=== PATIENT | female | born 2005 | race Two or more races ===

== ENCOUNTER 2024-05-16 10:28 | Day surgery (SDC) | payer OTHER, SELFPAY ==
--- NOTE | 2024-05-16 10:30 | ED_ITS ---
HPI - General Adult General Time Seen by Provider: 10:30 Date Seen: 05/16/24 Chief complaint: Ear/Nose/Throat Problem Stated complaint: swollen throat - fever Time Seen by Provider: 05/16/24 10:30 Source: patient, RN notes reviewed and other (Provider from urgent care did call report to me.) Mode of arrival: ambulatory Limitations: no limitations History of Present Illness HPI narrative: This 19-year-old female is sent from urgent care with concern of right peritonsillar abscess. She has had a 3 day history of sore throat. Was noted to have a hot potato voice, right neck swelling. They did do a strep and it is negative. Her provider noted right greater than left neck swelling externally. Patient is a [employer] student, studying [employer]. She has an IUD in place. Denies any chronic medical history, has not had tonsillitis or peritonsillar abscess before. Related Data Home Medications ?Medication ?Instructions ?Recorded ?Confirmed No Known Home Medications 05/16/24 05/16/24 Allergies Allergy/AdvReac Type Severity Reaction Status Date / Time No Known Drug Allergies Allergy Verified 05/16/24 09:22 Review of Systems Status of ROS: Reports: 6 or more systems reviewed and unremarkable except as noted in History and below PFSH PFS Social History Smoking Status: Never smoker Do you use any of these nicotine containing products: None How often do you have a drink containing alcohol: never AUDIT-C Alcohol total score: 0 Non-prescribed substance use: marijuana (any form) Exam Const: Vital Signs, click to edit/add: Vital Signs - 24 hr 05/16/24 10:31 05/16/24 10:34 05/16/24 11:46 Temperature 99.1 F Pulse Rate [Pulse Oximeter] 114 H 100 Respiratory Rate 18 Blood Pressure [Le ft Upper Arm] 117/82 117/80 Pulse Oximetry 98 96 Oxygen Delivery Me thod Room Air With this 19-year-old female is alert, interactive, breathing independently, do not hear her breathing. Skin feels warm but no rash. Pupils equal round reactive, sclera clear. She has significant pain opening her jaw, can get her jaw open about 2 cm, can see enough back into the posterior pharynx that there is significant right soft tissue in tonsillar swelling, do not appreciate exudate. Time is normal. Voice is muffled. She has significant pain on palpation of her her right anterior superior neck, do feel adenopathy. Lungs are clear, good air entry, no wheezing or crackles, no stridor noted. CV fast but regular, no murmur. Documenting provider has reviewed patient's vital signs: yes Course Course ED Course: This patient requires emergent CT neck imaging, have definite concerns about peritonsillar abscess, likely right. Will place an IV, have her on pulse oximetry. Will give her pain management with morphine, cover nausea side effect with Zofran. Will give her 500 mL normal saline. Will get appropriate labs, strep has been done and is negative, will obtain mono and the triple viral swab. The patient will get Unasyn 3 g IV and 10 mg IV dexamethasone. Reevaluation(s) Time of Reevaluation #1: 12:17 Reevaluation #1: With patient has been moved over to preop area awaiting arrival of ENT to go to OR. Anesthesia has already been over to see her. We will hold her in the preop area awaiting Dr. Loaiza, need surgical drainage of her right para tonsillar abscess. Did review with anesthesia if there is concern for the airway and problems with extubation, we certainly can help with assisting them and getting her placement at outside institution. This may be difficult due to bed capacity that the outside systems are currently experiencing. Patient declines any need for pain management at this time. Was actually resting and sleeping prior to us awakening her to ready her for surgery. Consultations Consultation #1: Have talked to Dr. Loaiza whom is on his way. This patient does require surgical drainage, there is concern about extension of the infection to the airway. There is no retropharyngeal extension. She does have 2 rim enhancing abscesses in the right palatine tonsil with likely rupture into the inferior right peritonsillar space. Time: 11:41 Consultation #2: We have assisted the OR team and attempt he define ICU beds for this patient. I did just talk to [facility], they do not have capacity at the 1 ICU with ENT and airway issues; thus they have no ability to take this patient. Patient was reportedly weight listed at [facility], other [facility] facilities are unable to take this patient. The anesthesia providers and hospitalist will need to make accommodations for this patient at this time here until we can find an ICU bed. Dr. Loaiza did review with [facility] of [facility] via speaker while here in the office that he did amputate the distal 3rd of her uvula due to significant cellulitic infection. He saw hypoglossal cellulitis. She had blebs on the posterior aspect of her epiglottis that were watery and edematous. She had an infectious its and suppurative tonsils. He did drain 2 abscesses. Time: 13:54 Consultation #3: Spoke with [facility] lining machine operator Dr. Flaherty. Reviewed the case, he will accept the patient. Will let the OR crew know that I have spoken on behalf of this patient for transfer. Time: 16:23 Vital Signs Vital signs: Initial Vital Signs Pulse Oximetry 98 05/16/24 10:31 Vital Signs Pulse Oximetry 98 05/16/24 10:31 Temperature 99.1 F 05/16/24 10:34 Pulse Rate 100 05/16/24 11:46 Respiratory Rate 18 05/16/24 10:34 Blood Pressure 117/80 05/16/24 11:46 Pulse Oximetry 96 05/16/24 10:34 Oxygen Delivery Method Room Air 05/16/24 10:34 Medications Administered Medications: Discontinued Medications Generic Name Dose Route Start Last Admin Trade Name Freq PRN Reason Stop Dose Admin Dexamethasone 10 mg 05/16/24 11:07 05/16/24 11:42 Dexamethasone 10 Mg/Ml Inj IVP 05/16/24 11:08 10 mg ONCE ONE Administration Sodium Chloride 500 mls @ 500 mls/hr 05/16/24 10:40 05/16/24 11:50 0.9 % Sodium Chloride 500 Ml IV 05/16/24 11:39 Infused .Q1H ONE Infusion Ampicillin Sodium/Sulbactam 100 mls @ 200 mls/hr 05/16/24 11:07 05/16/24 11:39 Sodium 3 gm/ Sodium Chloride IVPB 05/16/24 11:08 200 mls/hr ONCE ONE Administration Morphine Sulfate 2 mg 05/16/24 10:40 05/16/24 11:28 Morphine 2 Mg/Ml Inj IVP 05/16/24 10:41 2 mg ONCE ONE Administration Ondansetron HCl 4 mg 05/16/24 10:40 05/16/24 11:25 Ondansetron 2 Mg/Ml Inj IVP 05/16/24 10:41 4 mg ONCE ONE Administration Medical Decision Making Lab Data Lab results reviewed: Yes I reviewed the patient's lab results Labs: Lab Results 05/16/24 05/16/24 Range/Units 10:52 11:50 WBC 15.20 H (4.50-11.00) K/uL RBC 4.15 (4.00-5.20) m/uL Hgb 12.5 (12.0-16.0) gm/dL Hct 36.8 (33.0-51.0) % MCV 89 (80-100) fL MCH 30 (26-34) pg MCHC 34 (32-36) gm/dL RDW Coeff of Marsha 11.7 (11.5-15.5) % Plt Count 280 (140-440) K/uL Neut % (Auto) 82.8 H (42.0-72.0) % Lymph % (Auto) 6.6 L (20-44) % [place] % (Auto) 10.1 (0.0-11.0) % Eos % (Auto) 0.0 (0.0-7.0) % Baso % (Auto) 0.2 (0.0-3.0) % Neut # (Auto) 12.60 H (1.7-7.0) K/uL Lymph # (Auto) 1.00 (0.90-2.90) K/uL [place] # (Auto) 1.50 H (0.00-0.90) K/UL Eos # (Auto) 0.00 (0.00-0.50) K/uL Baso # (Auto) 0.00 (0.00-0.30) K/uL Abs Immat Gran (auto) 0.00 (0.00-0.30) K/uL Imm/Tot Granulo (auto) 0.3 % Sodium 132 L (135-149) mmol/L Potassium 3.6 (3.6-5.1) mmol/L Chloride 98 (96-114) mmol/L Carbon Dioxide 20 (20-32) mmol/L Anion Gap 14 (7-15) mEq/L BUN 6 (5-24) mg/dL Creatinine 0.5 (0.5-1.5) mg/dL Estimated GFR 137 ml/min Glucose 99 (60-115) mg/dL Lactate 0.6 (0.5-1.9) mmol/L Calcium 9.4 (8.4-10.6) mg/dL C-Reactive Protein 13.4 H (0.5-1.0) mg/dL SARS-CoV-2 (PCR) POSITIVE SARS-CoV-2 A (Negative) Monoscreen Negative (Negative) Influenza Type A (PCR) Negative PCR FLU A (Negative) Influenza Type B (PCR) Negative PCR FLU B (Negative) RSV (PCR) Negative PCR RSV (Negative) Imaging Data CT- Other: Attestation: I have reviewed the pertinent imaging results. Radiologist's impression: Patient: BERNABE PARRA Facility:?[facility] Patient ID:?[id number] Site Patient ID:?[id number]. Site :?[id number] Study:?CT-ST Neck W/ 76CC ISOVUE 370-05/16/2024 11:08:19 AM Ordering Physician:?Erica James Final Report: Indication: Severe sore throat, difficulty swallowing. Technique: Contrast-enhanced CT of the neck with multiplanar reconstructions utilizing 76 cc Isovue 370 iodinated intravenous contrast. Comparison: None available. Findings: Striated enhancement and enlargement of the palatine tonsils consistent with acute suppurative tonsillitis. Two rim enhancing abscesses within the right palatine tonsil, the superior collection measuring 1.8 x 0.9 x 1.5 cm (series 3, image 24) and a collection more inferiorly measuring 1.3 x 1.2 x 1.1 cm (series 3, image 28). Likely ruptured into the inferior right peritonsillar space with diffuse infiltration of the soft tissues throughout the right neck and supraglottic space. Mild mass effect on the airway with effacement of the right piriform sinus. No retropharyngeal extension. Multiple enlarged bilateral upper cervical lymph nodes which are likely reactive. Unremarkable parotid and submandibular glands. Normal thyroid gland. The lung apices are clear. No aggressive osseous lesion is identified. The major vascular structures are within normal limits. The imaged orbits and intracranial structures are unremarkable. Impression: 1. Striated enhancement and enlargement of the palatine tonsils consistent with acute suppurative tonsillitis. 2. Two rim enhancing abscesses within the right palatine tonsil, with likely rupture into the inferior right peritonsillar space. 3. Diffuse infiltration of the soft tissues throughout the right neck and supraglottic space with mild mass effect on the adjacent airway. 4. No evidence of retropharyngeal extension. 5. Multiple enlarged bilateral cervical lymph nodes which are likely reactive. Please note that all CT scans at this facility use dose modulation, iterative reconstruction, and/or weight-based dosing when appropriate to reduce radiation dose to as low as reasonably achievable. Dictated by Zion Felipe MD @ 05/16/2024 11:34:13 AM (Electronic Signature) Discharge Plan Discharge Clinical Impression: Abscess, peritonsillar, COVID Patient Disposition: XFER to OR Condition: Guarded
[2024-05-16 10:31] VITALS: O2SAT 98
[2024-05-16 10:34] VITALS: BP 117/82; PULSE 114; RESP 18; TEMP 37.3; O2SAT 96
[2024-05-16 10:57] LABS: Lactate* 0.6 mmol/L (0.5-1.9)
[2024-05-16 11:05] LABS: Mono Screen* Negative (Negative)
[2024-05-16 11:16] LABS: Chloride* 98 mmol/L (96-114); Potassium* 3.6 mmol/L (3.6-5.1); Sodium* 132 mmol/L (135-149)
[2024-05-16 11:19] LABS: Creatinine* 0.5 mg/dL (0.5-1.5); Estimated Glomerular Filt Rate 137 ml/min
[2024-05-16 11:20] LABS: Anion Gap 14 mEq/L (7-15); Blood Urea Nitrogen* 6 mg/dL (5-24); Calcium* 9.4 mg/dL (8.4-10.6); Carbon Dioxide* 20 mmol/L (20-32); Glucose* 99 mg/dL (60-115)
[2024-05-16] MEDS: 0.9 % SODIUM CHLORIDE 500 ML 500 ML IV (11:22)
[2024-05-16] MEDS: ONDANSETRON 2 MG/ML inj 4 MG IVP (11:25)
[2024-05-16] MEDS: MORPHINE 2 MG/ML inj IVP (11:28)
[2024-05-16 11:31] LABS: Basophils Percent Auto 0.2 % (0.0-3.0); Hematocrit 36.8 % (33.0-51.0); Hemoglobin* 12.5 gm/dL (12.0-16.0); Immature Granulocytes Pct Auto 0.3 %; Lymphocytes Percent Auto 6.6 % (20-44); Mean Corpuscular HGB Conc 34 gm/dL (32-36); Mean Corpuscular Hemoglobin 30 pg (26-34); Mean Corpuscular Volume 89 fL (80-100); Monocytes Percent Auto 10.1 % (0.0-11.0); Neutrophils Percent Auto 82.8 % (42.0-72.0); Platelet Count* 280 K/uL (140-440); RDW Coefficient of Variation % 11.7 % (11.5-15.5); Red Blood Count 4.15 m/uL (4.00-5.20); Slide Review Reflex No
[2024-05-16 11:34] LABS: C Reactive Protein* 13.4 mg/dL (0.5-1.0)
[2024-05-16] MEDS: AMPICILLIN/SULBACTAM 3 GM in 0.9 % SODIUM CHLORIDE Mini-bag 100 ML IVPB (11:39)
[2024-05-16] MEDS: dexAMETHasone 10 MG/ML inj IVP (11:42)
[2024-05-16 11:46] VITALS: BP 117/80; PULSE 100
[2024-05-16 12:45] LABS: PCR FLU A Negative PCR FLU A (Negative); PCR FLU B Negative PCR FLU B (Negative); PCR RSV Negative PCR RSV (Negative); SARS PCR* POSITIVE SARS-CoV-2 (Negative)
--- NOTE | 2024-05-16 12:49 | P.ENTCN_ITS ---
HPI- ENT Consult Date of Consult Date Seen: 05/16/24 Consult date: 05/16/24 Primary Care Provider: Not a Local Provider Consult Narrative Reason for consult: Right peritonsillar absces, hypopharyngeal edema/cellulitis Narrative: Emma Stark is a 19 year old female 4 day history of sore throat presented to ER with trismus odynophagia dysphagia and right neck swelling. CT revealed 2 right peritonsillar abscesses. One was read as possibly intra tonsillar. There was adjacent neck soft tissue edema and on my read of the scan and there is significant edema of the epiglottis. The airway was patent. She was treated with IV antibiotic and Decadron [facility] Social History Smoking Status: Never smoker Do you use any of these nicotine containing products: None How often do you have a drink containing alcohol: never AUDIT-C Alcohol total score: 0 Non-prescribed substance use: marijuana (any form) Meds Home Medications and Allergies Home Medications ?Medication ?Instructions ?Recorded ?Confirmed ?Type No Known Home Medications 05/16/24 05/16/24 History Allergies Allergy/AdvReac Type Severity Reaction Status Date / Time No Known Drug Allergies Allergy Verified 05/16/24 09:22 Exam Narrative: Exam Narrative: General skin neuro respiratory gait peripheral vascular vocal quality skin of head neck are all negative except muffled voice, significant trismus, uvular cellulitis, bulge right soft palate. Unable to visualize the lower airway due to her trismus but we have the CT scan to evaluate that. Const: Vital Signs, click to edit/add: Vital Signs - 24 hr 05/16/24 10:31 05/16/24 10:34 05/16/24 11:46 Temperature 99.1 F Pulse Rate [Pulse Oximeter] 114 H 100 Respiratory Rate 18 Blood Pressure [Le ft Upper Arm] 117/82 117/80 Pulse Oximetry 98 96 Oxygen Delivery Me thod Room Air ENT-CN: Result Labs Labs: Short CBC 05/16/24 Range/Units 10:52 WBC 15.20 H (4.50-11.00) K/uL Hgb 12.5 (12.0-16.0) gm/dL Hct 36.8 (33.0-51.0) % Plt Count 280 (140-440) K/uL [facility] 05/16/24 10:52 Sodium 132 L Potassium 3.6 Chloride 98 Carbon Dioxide 20 BUN 6 Creatinine 0.5 Glucose 99 Calcium 9.4 Assessment and Plan Assessment and plan (1) Abscess, peritonsillar: Status: Acute Plan Right peritonsillar abscess x2. 1 May be intra tonsillar both appear peritonsillar to me. A edema around the epiglottis and on posterior surface of epiglottis, airway patent at this time. Discussed options with patient. Would recommend she be taken the operating room intubated have abscesses drained. Because of the edema around the epiglottis she may remain intubated and transferred to a different facility. Risks include recurrence anesthesia bleeding difficulty obtaining airway injury to adjacent structures etc. these were all reviewed. I also reviewed scan images Total Time Spent Total Time Spent: 40
--- NOTE | 2024-05-16 12:53 | W.PM.ENTPROC ---
Procedure Note Date of procedure: 05/16/24 Procedure: preoperative diagnosis right peritonsillar abscess x2, possible 1 intra tonsillar abscess, cellulitis soft palate, cellulitis at epiglottic level, patent airway Postoperative diagnosis right superior and right inferior peritonsillar abscess, cellulitis uvula, cellulitis on posterior surface of epiglottis and hypopharynx Procedure intubation, drainage 2 right peritonsillar abscesses, amputation of distal uvula to allow decompression The patient was brought to the operating room after informed consent was obtained and prepped and draped in the usual fashion. Anesthesia was able to intubate relatively easily with the assistance of a glide scope. It was apparent on intubation that there were that was cellulitis on the posterior surface of the epiglottis the lingual surface. McIvor mouth gag was inserted the tongue retracted forward. The uvula was quite edematous and the lower 5 mm was completely swollen and was amputated with a needlepoint cautery. There is a bulge in the right soft palate corresponding to the superior peritonsillar abscess. Incision was made in mucosa with a Bovie cautery and then blunt dissection was used to enter the abscess cavity. This was cultured and then the cavity was completely drained and irrigated. There is a right inferior tonsil abscessed. This was approached in the similar way with an incision made with the Bovie cautery just lateral to the lingual tonsillar junction. Blunt dissection was used to easily enter the abscess cavity. This was completed please suction free of pus and then irrigated copiously. Because of the amount of edema in the hypopharynx and on the surface of the epiglottis the patient was left intubated the will be transferred to another facility. Bleeding was controlled during the procedure with suction cautery. Blood loss was approximately 20 mL. There were no complications. Surgeon: Sonny Loaiza MD
--- NOTE | 2024-05-16 13:12 | CRLHL7_ITS ---
For Patients: As a result of the Cures Act, medical imaging exams and procedure reports are released immediately into your electronic medical record. You may view this report before your referring provider. If you have questions, please contact your health care provider. Indication: COVID, INTUBATION PLACEMENT Technique: AP view of the chest. Comparison: None. Findings: Endotracheal tube with tip 5.2 centimeter above the level of the adeline. Normal cardiomediastinal silhouette. Subtle hazy bilateral airspace opacities. No pleural effusions or visualized pneumothorax. Impression: 1. Endotracheal tube with tip 5.2 centimeter above the level of the adeline. 2. Subtle hazy bilateral airspace opacities may represent atypical infection or inflammation. Dictated by Jeffery Price MD @ 05/16/2024 1:43:20 PM (Electronically Signed)
--- NOTE | 2024-05-16 13:18 | SUR.OPER ---
conde placed, 16 turkish 10 ml balloon, clear urine 500 ml of urine in conde bag.
--- NOTE | 2024-05-16 13:40 | W.PM.ENTPN ---
ENT-PN: Subj Subjective Date Seen: 05/16/24 Interval history: Follow-up. Patient is stable intubated. COVID test was positive. Reviewed situation with hospitalist who recommended a chest x-ray. I also ordered a input output measurement and ongoing Unasyn and 2 more doses of Decadron. Progress Note: A&P Assessment and plan (1) COVID: Status: Acute Assessment and Plan: Continue current care Plan COVID positive Status post drainage 2 peritonsillar abscesses Adult supraglottitis Time Spent With Patient Total time spent: 30 Exam Narrative: Exam Narrative: Stable intubated Const: Vital Signs, click to edit/add: Vital Signs - 24 hr 05/16/24 10:31 05/16/24 10:34 05/16/24 11:46 Temperature 99.1 F Pulse Rate [Pulse Oximeter] 114 H 100 Respiratory Rate 18 Blood Pressure [Le ft Upper Arm] 117/82 117/80 Pulse Oximetry 98 96 Oxygen Delivery Me thod Room Air ENT-PN: Obj Labs Labs: Laboratory Results - last 24 hr 05/16/24 05/16/24 10:52 11:50 WBC 15.20 H RBC 4.15 Hgb 12.5 Hct 36.8 MCV 89 MCH 30 MCHC 34 RDW Coeff of Marsha 11.7 Plt Count 280 Neut % (Auto) 82.8 H Lymph % (Auto) 6.6 L [place] % (Auto) 10.1 Eos % (Auto) 0.0 Baso % (Auto) 0.2 Neut # (Auto) 12.60 H Lymph # (Auto) 1.00 [place] # (Auto) 1.50 H Eos # (Auto) 0.00 Baso # (Auto) 0.00 Abs Immat Gran (auto) 0.00 Imm/Tot Granulo (auto) 0.3 Sodium 132 L Potassium 3.6 Chloride 98 Carbon Dioxide 20 Anion Gap 14 BUN 6 Creatinine 0.5 Estimated GFR 137 Glucose 99 Lactate 0.6 Calcium 9.4 C-Reactive Protein 13.4 H SARS-CoV-2 (PCR) POSITIVE SARS-CoV-2 A Monoscreen Negative Influenza Type A (PCR) Negative PCR FLU A Influenza Type B (PCR) Negative PCR FLU B RSV (PCR) Negative PCR RSV
--- NOTE | 2024-05-16 14:18 | SUR.OPER ---
Patient positioned for comfort, pillow under knees, arms flexed and placed on abdomen instead of at her side.
--- NOTE | 2024-05-16 14:45 | SUR.OPER ---
Patient 4 person transferred to regular bed, HOB elevated, 2 pillows under knees.
--- NOTE | 2024-05-16 14:56 | SUR.OPER ---
Patient listed Jimmy as her Primary Contact with phone number [phone]. Listed as a former [employer] Student
--- NOTE | 2024-05-16 15:08 | SUR.OPER ---
Report given to SHAKIRA Carbone prior to leaving for shift. Jimmy is the point of contact for when patient is transferred to another facility.
--- NOTE | 2024-05-16 16:16 | SUR.PHASEI ---
Pt in a supine position at 30 degrees with pillows under knees and calves with pillows under both arms and a pillow under head. Pt has SCD's running on bilateral calves.
--- NOTE | 2024-05-16 16:45 | SUR.PHASEI ---
Pt tilted to right side with pillow under left side. Pillows under knees and calves along with arms. Mouth cares completed at this time. Left ear has red nicholson from position and head moved. Left and right elbows as well have red nicholson. Repositioned to relieve pressure.
--- NOTE | 2024-05-16 17:08 | W.ANESCHARGE ---
Anesthesia Charges Start Date/Time Anesthesia Start Date: 05/16/24 Anesthesia Start Time: 12:22 Stop Date/Time Anesthesia Stop Date: 05/16/24 Anesthesia Stop Time: 17:40 Summary Emergency: MDA
--- NOTE | 2024-05-16 17:14 | SUR.PHASEI ---
Pt turned to right side completely with pillow support, head turned to facing right side. Mepalex applied to sacrum. Sheets flattened out and pt was given oral care and suctioned at this time as well. Ortiz continues to be patent and draining. Pt continues to be calm and relaxed with no signs of aggitation.
--- NOTE | 2024-05-16 17:29 | SUR.PHASEI ---
Ortiz cath was emptied for 100mL of straw colored urine.
--- NOTE | 2024-05-16 18:04 | P.ANES_ITS ---
Anesthesia Charges Start Date/Time Anesthesia Start Date: 05/16/24 Anesthesia Start Time: 12:22 Stop Date/Time Anesthesia Stop Date: 05/16/24 Anesthesia Stop Time: 17:40 Summary Emergency: DISTRICT GAUGER
--- NOTE | 2024-05-16 18:25 | PC.NURSE ---
Per Viki Saleh RN's previous note, Jimmy was updated on pt's transfer. Pt was transferred to [facility] in [place] via [facility].
--- NOTE | 2024-05-17 07:52 | SUR.OPER ---
Patient's procedure ended at 1246, anesthesia end time was at 1301. Patient was then considered PACU time even though patient was still in the operating room. Surgery time was completed and moved to recovery PACU time.
== END 2024-05-16 17:40 | disposition short-term general hospital (02) ==
LOC: ED 11:55 → OR 12:19
PROVIDERS: Emergency Provider Family Medicine; Visit Provider Otolaryngology
PROC: 0C9PXZZ Drainage of Tonsils, External Approach (ICD-10-PCS; CPT 42700; principal; 2024-05-16 12:15)
DX: J36 Peritonsillar abscess (principal); K12.2 Cellulitis and abscess of mouth; J04.30 Supraglottitis, unspecified, without obstruction; U07.1 COVID-19; R13.10 Dysphagia, unspecified
CPT/HCPCS: 42700 ×2; 42140; 00170; 36415; 70491; 71045; 80048; 83605; 85025; 86140; 86308; 87070; 87075; 87076; 87077; 87205; 87631; 94761; 99140; 99285; A9270; J0295; J0330; J1100; J2250; J2270; J2405; J2704; J3010; J3490; J7030; Q9967

== ENCOUNTER 2024-08-11 10:50 | Day surgery (SDC) | payer OTHER, SELFPAY ==
[2024-08-11] VITALS (17 sets, daily range): BP systolic 99–134; BP diastolic 67–98; PULSE 60–94; RESP 14–18; TEMP 36.3–36.9; O2SAT 94–98; BMI 21.1
[2024-08-11] MEDS: LACTATED RINGERS 1000 ML 1,000 ML 100 ML IV (10:55)
[2024-08-11 11:10] LABS: Ur HCG Qualitative* Negative (Negative)
[2024-08-11] MEDS: SODIUM CHLORIDE 0.9 % (FLUSH) 10 ML SYRINGE IVF (11:23)
--- NOTE | 2024-08-11 13:27 | W.PM.ENTPROC ---
Procedure Note Date of procedure: 08/11/24 Procedure: Preoperative diagnosis chronic tonsillitis, tonsillar hypertrophy, upper airway obstruction Postoperative diagnosis same Procedure tonsillectomy Under general endotracheal anesthesia the patient was prepped and draped in usual fashion. The McIvor mouth gag was inserted the tongue retracted forward. No submucous cleft was noted on inspection or palpation. The right and left tonsils were removed with a combination of needlepoint cautery, bipolar cautery and suction cautery. Meticulous hemostasis was achieved. The the nasopharyngeal tonsil pad was visualized with a laryngeal mirror and removed with suction cautery. The patient was extubated in the operating room taken recovery in satisfactory condition. Blood loss was less than 10 mL. Surgeon: Sonny Loaiza MD
--- NOTE | 2024-08-11 13:33 | P.ANES_ITS ---
Anesthesia Charges Start Date/Time Anesthesia Start Date: 08/11/24 Anesthesia Start Time: 12:49 Stop Date/Time Anesthesia Stop Date: 08/11/24 Anesthesia Stop Time: 13:31 Coding CPT Codes CPT Codes: ANESTH PROCEDURE ON MOUTH - 64820 ([id number]) P2 - PATIENT W/MILD SYST DISEASE, QZ - LIFESTYLE CONSULTANT SVC W/O PATIENT'S LIBRARIAN BY
--- NOTE | 2024-08-11 13:33 | W.ANESCHARGE ---
Anesthesia Charges Start Date/Time Anesthesia Start Date: 08/11/24 Anesthesia Start Time: 12:49 Stop Date/Time Anesthesia Stop Date: 08/11/24 Anesthesia Stop Time: 13:31 Coding CPT Codes CPT Codes: ANESTH PROCEDURE ON MOUTH - 90008 ([id number]) P2 - PATIENT W/MILD SYST DISEASE, QZ - BOTTLE HOP SVC W/O BELT KNIFE FEEDER BY
[2024-08-11] MEDS: OXYCODONE 1 MG/ML ORAL SOLN 5 MG PO ×3 (14:41→23:19)
[2024-08-11] MEDS: IBUPROFEN 100 MG/5 ML SUSP 200 MG PO (21:25)
[2024-08-11] MEDS: ZOLPIDEM 5 MG TABLET PO (21:26)
--- NOTE | 2024-08-11 23:39 | PC.NURSE ---
Patient is plesant, VSS on RA... reports moderate/severe throat pain throughout the shift, PRN medications were given. Transitioned to a soft diet with no N/V. reports having trouble getting to sleep despite PRN administration. Liana FRASER BSN
[2024-08-12 04:24] VITALS: BP 101/52; PULSE 54; RESP 16; O2SAT 98
[2024-08-12 07:00] VITALS: BP 106/70; PULSE 70; RESP 16; TEMP 36.4; O2SAT 99
--- NOTE | 2024-08-12 07:37 | PC.NURSE ---
[id number]: Pt alert, oriented and vitally stable. up independently. Pain rated 7/10, though pt did not want prn medication. Ice chips provided. Pt in bed, appears to be resting, call light within reach.?
[2024-08-12] MEDS: OXYCODONE 1 MG/ML ORAL SOLN 5 MG PO ×2 (08:22→12:23)
[2024-08-12] MEDS: IBUPROFEN 100 MG/5 ML SUSP 200 MG PO (10:02)
--- NOTE | 2024-08-12 13:41 | PC.NURSE ---
Discharge: Patient pleasant and cooperative, A&O. VSS, afebrile. SpO2 maintained above 90% on RA. Patient reports pain in her throat this shift, managed with PRN medication, see MAR. IV removed with tip intact. Discharge instructions provided, all questions answered. Discharged to home.
== END 2024-08-12 12:35 | disposition home or self-care (01) ==
LOC: OR 10:53 → MEDSURG 10:57
PROVIDERS: Nurse Anesthetist, Certified Registered; Visit Provider Otolaryngology
PROC: (CPT 42826; principal; 2024-08-11 12:00)
DX: J35.01 Chronic tonsillitis (principal)
CPT/HCPCS: 42826; 00170; 81025; 88304; A9270; J0330; J1100; J2405; J2704; J3010; J3490; J7120

== ENCOUNTER 2024-08-21 07:56 | Emergency (ER) | payer OTHER, SELFPAY ==
[2024-08-21 08:02] VITALS: BP 107/72; PULSE 64; RESP 18; TEMP 36.5; O2SAT 100; BMI 21.0
--- NOTE | 2024-08-21 09:06 | ED_ITS ---
HPI - General Adult General Date Seen: 08/21/24 Chief complaint: Post Op Complication Stated complaint: bleeding after tonsil removal Time Seen by Provider: 08/21/24 08:02 Source: patient Mode of arrival: ambulatory Limitations: no limitations History of Present Illness HPI narrative: Patient is a 19-year-old female presenting to the emergency department for post tonsillectomy bleeding. She has tonsillectomy with Dr Mcfarland on 08/11/2024. She states she was doing well up until this morning when she notes she had a large amount of bleeding. She states she was spitting up bright red blood and that seemed to stop but he still the taste of blood in the back of her throat. Due that she came in to be evaluated. States swallowing the blood has made her slightly nauseated but is not feel like she has to vomit. She states she is otherwise doing well. Denies any other complications with the tonsillectomy. No other concerns noted. Related Data Home Medications ?Medication ?Instructions ?Recorded ?Confirmed levonorgestrel 17.5 mcg/24 hr (up 1 device intrauterine ONCE 08/02/24 08/21/24 to 5 yrs) 19.5mg intrauterine device (Kyleena) Previous Rx's ?Medication ?Instructions ?Recorded ondansetron 4 mg disintegrating 4 mg PO Q8H #10 tabs 08/02/24 tablet oxycodone 5 mg/5 mL oral solution 5 mg (5 mL) PO Q4-6H PRN pain #200 08/02/24 mL ondansetron 4 mg disintegrating 4 mg PO Q8H #10 tabs 08/11/24 tablet oxycodone 5 mg/5 mL oral solution 5 mg (5 mL) PO Q4-6H PRN pain #200 08/11/24 mL Allergies Allergy/AdvReac Type Severity Reaction Status Date / Time No Known Drug Allergies Allergy Verified 08/21/24 08:08 Review of Systems Status of ROS: Reports: 10 or more systems reviewed and unremarkable except as noted in History and below PFSH PFSH Surgical History History of peritonsillar abscess drainage ?Z98.890 - Other specified postprocedural states (ICD-10) Family History Father Stroke Social History Smoking Status: Never smoker Do you use any of these nicotine containing products: None How often do you have a drink containing alcohol: monthly or less AUDIT-C Alcohol total score: 1 Non-prescribed substance use: denies use Caffeine: Yes service: No Exam Narrative: Exam Narrative: Const: Well-nourished, Well-developed, in no distress Eyes: PERRL, no conjunctival injection, and symmetrical lids HENT: Atraumatic external nose and ears. Moist mucous membranes. No blood seen in the oropharynx. No active bleeding seen from her tonsillectomy sites. Neck: Symmetric, trachea midline, No thyromegaly. CVS: RRR, No murmurs or gallops. Peripheral pulses 2+ and equal in all extremities RESP: Unlabored respiratory effort. Clear to auscultation bilaterally. GI: Nontender/Nondistended, No rebound or guarding. MSK:Extremities w/o deformity, Normal Active ROM Skin: Warm, Dry. No rashes or lesions. Neuro: Normal Muscle tone, No focal neurological deficits. Psych: Awake, Alert, & Oriented x3. Appropriate mood and affect. Const: Vital Signs, click to edit/add: Vital Signs - 24 hr 08/21/24 08:02 Temperature 97.7 F Pulse Rate [Pulse Oximeter] 64 Respiratory Rate 18 Blood Pressure [Ri ght Upper Arm] 107/72 Pulse Oximetry 100 Oxygen Delivery Me thod Room Air Course Vital Signs Vital signs: Initial Vital Signs Temperature 97.7 F 08/21/24 08:02 Temperature Source Temporal Artery Scan 08/21/24 08:02 Pulse Rate 64 08/21/24 08:02 Respiratory Rate 18 08/21/24 08:02 Blood Pressure 107/72 08/21/24 08:02 Blood Pressure Mean 83 08/21/24 08:02 Blood Pressure Position Sitting 08/21/24 08:02 Pulse Oximetry 100 08/21/24 08:02 Oxygen Delivery Method Room Air 08/21/24 08:02 Vital Signs Temperature 97.7 F 08/21/24 08:02 Pulse Rate 64 08/21/24 08:02 Respiratory Rate 18 08/21/24 08:02 Blood Pressure 107/72 08/21/24 08:02 Pulse Oximetry 100 08/21/24 08:02 Oxygen Delivery Method Room Air 08/21/24 08:02 Temperature 97.7 F 08/21/24 08:02 Pulse Rate 64 08/21/24 08:02 Respiratory Rate 18 08/21/24 08:02 Blood Pressure 107/72 08/21/24 08:02 Pulse Oximetry 100 08/21/24 08:02 Oxygen Delivery Method Room Air 08/21/24 08:02 Medical Decision Making MDM Narrative Medical decision making narrative: Patient is a 19-year-old female presenting for points tonsillectomy bleeding. Based on my initial exam the bleeding seems to have stopped. She otherwise is stable at this point. Does not want anything for current nausea. She states that it is mild. No other concerns currently. We will monitor her for an hour to make sure the bleeding does not restart. After about an hour she did mention to the nurse that she noticed some pink tinge to her saliva. States otherwise her symptoms are the same. Did re- evaluated again and can just barely see the very top of a red area in the right tonsillectomy site which is likely a clot. I did speak to Dr. Mcfarland who recommends hemoglobin and that she is safe for discharge as long sits only pink villarreal sputum, hemoglobin is normal, she develops no other symptoms. States that bleeding incurred is again there will likely need to do cauterization. Hemoglobin is normal and patient will be discharged Lab Data Labs: Lab Results 08/21/24 Range/Units 09:16 Hgb 12.3 (12.0-16.0) gm/dL Discharge Plan Discharge Clinical Impression: Post-tonsillectomy hemorrhage Patient Disposition: Home, Self-Care Condition: Stable Additional Instructions: If the bleeding does restart return to this emergency department but also call Dr. Palafox office so he can come in right away for cauterization. Prescriptions: No Action ondansetron 4 mg tablet,disintegrating 4 mg PO Q8H Qty: 10 1RF oxycodone 5 mg/5 mL solution 5 mg PO Q4-6H PRN (Reason: pain) Qty: 200 0RF Kyleena 17.5 mcg/24 hr (5 yrs) 19.5 mg intrauterine device 1 device intrauterine ONCE Rx Instructions: as a single dose oxycodone 5 mg/5 mL solution 5 mg PO Q4-6H PRN (Reason: pain) Qty: 200 0RF ondansetron 4 mg tablet,disintegrating 4 mg PO Q8H Qty: 10 1RF Follow Up/Referrals: Provider,Not a Local [Primary Care Provider] - Stand Alone Forms: MyHealth Info Instructions
[2024-08-21 09:28] LABS: Hemoglobin* 12.3 gm/dL (12.0-16.0)
[2024-08-21 09:50] VITALS: BP 108/81; PULSE 72; RESP 16; O2SAT 97
== END 2024-08-21 09:53 | disposition home or self-care (01) ==
PROVIDERS: Emergency Provider Student in an Organized Health Care Education/Training Program
DX: K91.840 Postprocedural hemorrhage of a digestive system organ or structure following a digestive system procedure (principal)
CPT/HCPCS: 36415; 85018; 99283

== ENCOUNTER 2024-08-21 11:33 | Day surgery (SDC) | payer OTHER, SELFPAY ==
[2024-08-21] VITALS (21 sets, daily range): BP systolic 111–140; BP diastolic 56–116; PULSE 58–90; RESP 12–18; TEMP 36.4–36.9; O2SAT 95–100
[2024-08-21] MEDS: LACTATED RINGERS 1000 ML 1,000 ML 100 ML IV (11:40)
--- NOTE | 2024-08-21 11:40 | P.ANES_ITS ---
Anesthesia Charges Start Date/Time Anesthesia Start Date: 08/21/24 Anesthesia Start Time: 12:19 Stop Date/Time Anesthesia Stop Date: 08/21/24 Anesthesia Stop Time: 12:50 Summary Emergency: JORDIN Coding CPT Codes CPT Codes: ANESTH NOSE/SINUS SURGERY - 49056 ([id number]) P1 - NORMAL HEALTHY PATIENT, QK - WIRE STRIPPER 2-4 CNCRNT ANES PROC, QX - EPIC C[employer]ISTS SVC W/ MD MED DIRECTION Additional Codes: Summary - Emergency: JORDIN ([id number])
--- NOTE | 2024-08-21 11:40 | W.ANESCHARGE ---
Anesthesia Charges Start Date/Time Anesthesia Start Date: 08/21/24 Anesthesia Start Time: 12:19 Stop Date/Time Anesthesia Stop Date: 08/21/24 Anesthesia Stop Time: 12:50 Summary Emergency: JORDIN Coding CPT Codes CPT Codes: ANESTH NOSE/SINUS SURGERY - 62872 ([id number]) P1 - NORMAL HEALTHY PATIENT, QK - CUSTOMER SERVICER 2-4 CNCRNT ANES PROC, QX - WOOLEN TESTER SVC W/ MD MED DIRECTION Additional Codes: Summary - Emergency: JORDIN ([id number])
--- NOTE | 2024-08-21 12:02 | ED.GENADULT ---
HPI - General Adult General Date Seen: 08/21/24 Chief complaint: Post Op Complication Stated complaint: throat- bleeding Time Seen by Provider: 08/21/24 11:38 Source: patient Mode of arrival: ambulatory Limitations: no limitations History of Present Illness HPI narrative: Patient is a 19-year-old female presenting to the emergency department for post tonsillectomy bleeding. Surgeries 08/11/2024. Patient was here earlier in the day but bleeding has stopped and ENT recommended discharge. She is informed of bleeding to her rings that she should call the ENT office so that they can come in immediately to the ED for surgery and cauterization. Patient states she has already called the ENT office and the provider is on his way. She states seems thing happened as earlier were she started spitting up blood. She states this time it seemed worse. Related Data Home Medications ?Medication ?Instructions ?Recorded ?Confirmed levonorgestrel 17.5 mcg/24 hr (up 1 device intrauterine ONCE 08/02/24 08/21/24 to 5 yrs) 19.5mg intrauterine device (Kyleena) Previous Rx's ?Medication ?Instructions ?Recorded ondansetron 4 mg disintegrating 4 mg PO Q8H #10 tabs 08/02/24 tablet oxycodone 5 mg/5 mL oral solution 5 mg (5 mL) PO Q4-6H PRN pain #200 08/02/24 mL ondansetron 4 mg disintegrating 4 mg PO Q8H #10 tabs 08/11/24 tablet oxycodone 5 mg/5 mL oral solution 5 mg (5 mL) PO Q4-6H PRN pain #200 08/11/24 mL Allergies Allergy/AdvReac Type Severity Reaction Status Date / Time No Known Drug Allergies Allergy Verified 08/21/24 08:08 Review of Systems Narrative: Pertinent systems reviewed and were negative unless stated in HPI PFSH PFSH Surgical History History of peritonsillar abscess drainage ?Z98.890 - Other specified postprocedural states (ICD-10) Family History Father Stroke Social History Smoking Status: Never smoker Do you use any of these nicotine containing products: None How often do you have a drink containing alcohol: monthly or less AUDIT-C Alcohol total score: 1 Non-prescribed substance use: denies use Caffeine: Yes service: No Exam Narrative: Exam Narrative: Const: Well-nourished, Well-developed, anxious Eyes: PERRL, no conjunctival injection, and symmetrical lids HENT: Atraumatic external nose and ears. Moist mucous membranes. Blood seen oropharynx near by both tonsillectomy sites. Cannot see any clear active bleeding MSK:Extremities w/o deformity, Normal Active ROM Skin: Warm, Dry. No rashes or lesions. Neuro: Normal Muscle tone, No focal neurological deficits. Psych: Awake, Alert, & Oriented x3. Appropriate mood and affect. Const: Vital Signs, click to edit/add: Vital Signs - 24 hr 08/21/24 11:40 Temperature 97.6 F Pulse Rate [Pulse Oximeter] 83 Respiratory Rate 18 Blood Pressure [Le ft Upper Arm] 140/116 H Pulse Oximetry 99 Oxygen Delivery Me thod Room Air Course Vital Signs Vital signs: Initial Vital Signs Temperature 97.6 F 08/21/24 11:40 Temperature Source Temporal Artery Scan 08/21/24 11:40 Pulse Rate 83 08/21/24 11:40 Respiratory Rate 18 08/21/24 11:40 Blood Pressure 140/116 H 08/21/24 11:40 Blood Pressure Mean 124 H 08/21/24 11:40 Blood Pressure Position Sitting 08/21/24 11:40 Pulse Oximetry 99 08/21/24 11:40 Oxygen Delivery Method Room Air 08/21/24 11:40 Vital Signs Temperature 97.6 F 08/21/24 11:40 Pulse Rate 83 08/21/24 11:40 Respiratory Rate 18 08/21/24 11:40 Blood Pressure 140/116 H 08/21/24 11:40 Pulse Oximetry 99 08/21/24 11:40 Oxygen Delivery Method Room Air 08/21/24 11:40 Temperature 97.6 F 08/21/24 11:40 Pulse Rate 83 08/21/24 11:40 Respiratory Rate 18 08/21/24 11:40 Blood Pressure 140/116 H 08/21/24 11:40 Pulse Oximetry 99 08/21/24 11:40 Oxygen Delivery Method Room Air 08/21/24 11:40 Medical Decision Making MDM Narrative Medical decision making narrative: Patient is a 19-year-old female presenting for recurrent tonsillectomy bleeding. Dr. akins is already on his way. Patient is otherwise stable. She will go to surgery. Discharge Plan Discharge Clinical Impression: Post-tonsillectomy hemorrhage Patient Disposition: XFER to OR Condition: Stable Prescriptions: No Action ondansetron 4 mg tablet,disintegrating 4 mg PO Q8H Qty: 10 1RF oxycodone 5 mg/5 mL solution 5 mg PO Q4-6H PRN (Reason: pain) Qty: 200 0RF Kyleena 17.5 mcg/24 hr (5 yrs) 19.5 mg intrauterine device 1 device intrauterine ONCE Rx Instructions: as a single dose oxycodone 5 mg/5 mL solution 5 mg PO Q4-6H PRN (Reason: pain) Qty: 200 0RF ondansetron 4 mg tablet,disintegrating 4 mg PO Q8H Qty: 10 1RF Follow Up/Referrals: Provider,Not a Local [Primary Care Provider] -
--- NOTE | 2024-08-21 12:37 | P.ENTCN_ITS ---
HPI- ENT Consult Date of Consult Date Seen: 08/21/24 Patient: [facility] Patient Consult date: 08/21/24 Requesting Physician: Other Primary Care Provider: Not a Local Provider Consult Narrative Reason for consult: Post tonsillectomy bleeding Narrative: Emma Stakr is a 19 year old female underwent tonsillectomy approximately 10 days ago. She developed bleeding this morning was watched in the ER hemoglobin was 12 and bleeding. So she was sent home. She resumed bleeding shortly after she got home. PFSH PFSH Surgical History History of peritonsillar abscess drainage ?Z98.890 - Other specified postprocedural states (ICD-10) Family History Father Stroke Social History Smoking Status: Never smoker Do you use any of these nicotine containing products: None How often do you have a drink containing alcohol: monthly or less AUDIT-C Alcohol total score: 1 Non-prescribed substance use: denies use Caffeine: Yes service: No Meds Home Medications and Allergies Home Medications ?Medication ?Instructions ?Recorded ?Confirmed ?Type levonorgestrel 17.5 mcg/24 hr (up 1 device intrauterine ONCE 08/02/24 08/21/24 History to 5 yrs) 19.5mg intrauterine device (Kyleena) Allergies Allergy/AdvReac Type Severity Reaction Status Date / Time No Known Drug Allergies Allergy Verified 08/21/24 08:08 Exam Narrative: Exam Narrative: General skin neuro respiratory gait peripheral vascular vocal quality skin of head neck are all negative except clot present right tonsillar fossa no active bleeding Const: Vital Signs, click to edit/add: Vital Signs - 24 hr 08/21/24 11:40 Temperature 97.6 F Pulse Rate [Pulse Oximeter] 83 Respiratory Rate 18 Blood Pressure [Le ft Upper Arm] 140/116 H Pulse Oximetry 99 Oxygen Delivery Me thod Room Air Assessment and Plan Assessment and plan (1) Post-tonsillectomy hemorrhage: Status: Acute Plan Right post tonsillectomy bleeding. She has blood twice I think it reasonable to go the operating room for cautery control. Risks including anesthesia further bleeding injury to adjacent structures etc. were all reviewed she understands and wishes to proceed.
--- NOTE | 2024-08-21 12:39 | P.ENTPROC_ITS ---
Procedure Note Date of procedure: 08/21/24 Procedure: Preop diagnosis right post tonsillectomy bleeding Postoperative diagnosis same Procedure cautery control right post tonsillectomy hemorrhage Under general endotracheal anesthesia patient was prepped and draped in usual fashion. The McIvor mouth gag was inserted the tongue retracted forward. There was no active bleeding. The clot was removed from the right tonsillar fossa inferiorly and moderate bleeding was noted. This appeared to be mainly granulation bleeding. This was easily controlled with the Coblation Wand. Both tonsillar fossa were abraded no further bleeding sites were noted. An 18 Sammarinese NG was passed into the stomach and the stomach contents evacuated under low suction. There is a small amount of blood. The patient procedure well was taken to recovery in satisfactory condition. Blood loss during pr ocedure was 5 mL. Surgeon: Sonny Loaiza MD
--- NOTE | 2024-08-21 12:52 | P.ANES_ITS ---
Anesthesia Charges Start Date/Time Anesthesia Start Date: 08/21/24 Anesthesia Start Time: 12:19 Stop Date/Time Anesthesia Stop Date: 08/21/24 Anesthesia Stop Time: 12:50 Summary Emergency: ENROBER Coding CPT Codes CPT Codes: ANESTH PROCEDURE ON MOUTH - 24674 ([id number]) P1 - NORMAL HEALTHY PATIENT, QK - SENIOR ELECTRICAL DESIGNER 2-4 CNCRNT ANES PROC, QX - ENROBER SVC W/ MD MED DIRECTION Additional Codes: Summary - Emergency: ENROBER ([id number])
--- NOTE | 2024-08-21 12:52 | W.ANESCHARGE ---
Anesthesia Charges Start Date/Time Anesthesia Start Date: 08/21/24 Anesthesia Start Time: 12:19 Stop Date/Time Anesthesia Stop Date: 08/21/24 Anesthesia Stop Time: 12:50 Summary Emergency: FOOTBALL PAD REPAIRER Coding CPT Codes CPT Codes: ANESTH PROCEDURE ON MOUTH - 97046 ([id number]) P1 - NORMAL HEALTHY PATIENT, QK - DRIVER/REFUSE COLLECTOR 2-4 CNCRNT ANES PROC, QX - FOOTBALL PAD REPAIRER SVC W/ MD MED DIRECTION Additional Codes: Summary - Emergency: FOOTBALL PAD REPAIRER ([id number])
[2024-08-21] MEDS: IBUPROFEN 100 MG/5 ML SUSP 200 MG PO ×2 (13:50→20:46)
[2024-08-21] MEDS: LACTATED RINGERS 1000 ML 1,000 ML 35 ML IV (17:27)
[2024-08-21] MEDS: OXYCODONE 1 MG/ML ORAL SOLN 5 MG PO ×2 (18:36→23:13)
--- NOTE | 2024-08-21 19:10 | PC.NURSE ---
End of shift: Patient pleasant and cooperative, A&O. VSS, afebrile. SpO2 maintained above 90% on RA. Patient reports pain in her throat this shift, managed with PRN medication, see MAR. Independent in room.
[2024-08-22] MEDS: IBUPROFEN 100 MG/5 ML SUSP 200 MG PO ×3 (01:58→11:09)
[2024-08-22 02:00] VITALS: BP 104/64; PULSE 68; RESP 16; TEMP 36.4; O2SAT 98
[2024-08-22] MEDS: OXYCODONE 1 MG/ML ORAL SOLN 5 MG PO ×3 (04:01→12:15)
--- NOTE | 2024-08-22 06:21 | PC.NURSE ---
Pt alert and oriented x3. Afebrile. Pt reports 7-8/10 pain in throat, pain managed with PRN medications. Pt is up ad karen, voiding, and tolerating fluids and soft foods. ??
[2024-08-22 07:00] VITALS: BP 108/69; PULSE 61; RESP 14; TEMP 36.7; O2SAT 98
[2024-08-22] MEDS: SODIUM CHLORIDE 0.9 % (FLUSH) 10 ML SYRINGE IVF (07:45)
[2024-08-22 11:00] VITALS: BP 121/71; PULSE 61; RESP 13; TEMP 36.7; O2SAT 98
[2024-08-22 11:09] VITALS: TEMP 36.7
== END 2024-08-22 12:23 | disposition home or self-care (01) ==
LOC: ED 12:05 → SS 12:21 → MEDSURG 14:00
PROVIDERS: Emergency Provider Student in an Organized Health Care Education/Training Program; Visit Provider Otolaryngology
PROC: (CPT 42960; principal; 2024-08-21 12:15)
DX: J95.830 Postprocedural hemorrhage of a respiratory system organ or structure following a respiratory system procedure (principal); K91.840 Postprocedural hemorrhage of a digestive system organ or structure following a digestive system procedure
CPT/HCPCS: 42962; 00160; 00170; 36415; 85018; 99140; 99283; 99285; A9270; J0330; J1100; J2371; J2405; J2704; J3010; J7120